=== PATIENT | male | born 1970 | race African-American/Black ===

== ENCOUNTER 2016-06-14 09:39 | Observation (INO) | payer OTHER ==
[2016-06-14 14:01] LABS: BASOPHILS % (AUTO) 0.3 % (0.2-1.0); HEMATOCRIT 27.5 % (42.0-54.0); HEMOGLOBIN 8.8 g/dL (13.5-18.0); LYMPHOCYTES # (AUTO) 3.3 X10^3/uL (1.3-2.9); LYMPHOCYTES % (AUTO) 23.9 % (21.0-51.0); MEAN CORPUSCULAR HEMOGLOBIN 25.4 pg (27.0-34.0); MEAN CORPUSCULAR HGB CONC 32.1 g/dL (33.0-35.0); MEAN CORPUSCULAR VOLUME 79.3 fL (80.0-100.0); MEAN PLATELET VOLUME 9.4 fL (7.4-11.0); MONOCYTES # (AUTO) 1.2 x10^3/uL (0.3-0.8); MONOCYTES % (AUTO) 8.7 % (0.0-13.0); NEUTROPHILS # (AUTO) 9.2 x10^3/uL (2.2-4.8); NEUTROPHILS % (AUTO) 67.1 % (42.0-75.0); PLATELET COUNT 94 X10^3/uL (150.0-450.0); RED BLOOD COUNT 3.47 X10^6/uL (4.7-6.0); RED CELL DISTRIBUTION WIDTH 15.6 % (11.6-16.5); WHITE BLOOD COUNT 13.7 X10^3/uL (3.6-10.0)
[2016-06-14 14:16] LABS: ALANINE AMINOTRANSFERASE 15 Units/L (12-78); ALBUMIN 3.2 g/dL (3.4-5.0); ALKALINE PHOSPHATASE 109 Units/L (46-116); ASPARTATE AMINO TRANSFERASE 10 Units/L (15-37); BLOOD UREA NITROGEN 11 mg/dL (7-18); CALCIUM 8.7 mg/dL (8.5-10.1); CARBON DIOXIDE 28.6 mmol/L (21-32); CHLORIDE 105 mmol/L (98-107); COR CA(FOR HYPOALB) 9.3 mg/dL (8.5-10.1); CREATININE 0.76 mg/dL (0.70-1.30); GLUCOSE 95 mg/dL (65-99); SODIUM 143 mmol/L (136-145); TOTAL PROTEIN 5.9 g/dL (6.4-8.2); eGFR BLACK RACES > 60 (>60); eGFR NON BLACK RACES > 60 (>60)
[2016-06-14] MEDS: NS 1000 ML 1,000 ML IV SCH (14:17)
[2016-06-14 14:24] LABS: C-REACTIVE PROTEIN 48.2 mg/L (0-3.0); FREE T4 (FREE THYROXINE) 1.09 ng/dL (0.76-1.46); TSH (3RD GENERATION) 0.982 uIU/mL (0.358-3.74)
[2016-06-14 14:25] LABS: HYPOCHROMASIA 1+; PLATELET MORPHOLOGY COMMENT NORMAL (NORMAL)
[2016-06-14 14:36] LABS: BILIRUBIN,URINE NEGATIVE (NEGATIVE); BLOOD/HEMOGLOBIN,URINE NEGATIVE (NEGATIVE); GLUCOSE, URINE NEGATIVE (NEGATIVE); KETONES,URINE NEGATIVE (NEGATIVE); LEUKOCYTE ESTERASE ,URINE 1+ (NEGATIVE); NITRITES,URINE NEGATIVE (NEGATIVE); PROTEIN,URINE NEGATIVE (NEGATIVE); UROBILINOGEN,URINE NORMAL (NORMAL)
[2016-06-14 15:11] LABS: APPEARANCE,URINE SLIGHTLY HAZY (CLEAR); COLOR,URINE YELLOW (YELLOW)
[2016-06-14 15:12] LABS: BACTERIA,URINE TRACE /HPF (NEGATIVE); MUCUS,URINE MODERATE /HPF (NEGATIVE); SQUAMOUS EPITHELIAL CELL,UR FEW /HPF (NEGATIVE)
[2016-06-14] MEDS ORDERED: NS 100 ML IV 100 ML IV ONE (15:45)
--- NOTE | 2016-06-14 16:27 | RAD ---
HISTORY: Cervical adenopathy, weight loss Study: Two view chest Comparison: None Findings: The lungs are clear without consolidation, effusion or pneumothorax. The cardiac and mediastinal co ntours are within normal limits. The soft tissues are unremarkable. IMPRESSION: 1. No acute cardiopulmonary abnormality. Reported By:
--- NOTE | 2016-06-14 16:34 | CT ---
HISTORY: Cervical adenopathy, anemia, weight loss Study: CT chest with a without contrast Comparison: None Technique: Multiple axial images of the chest were obtained from the thoracic inlet to the upper abd omen before and after the administration of IV contrast. Dose reduction techniques including Automa kelly Exposure Control (AEC) and adjustment of mA and kV were utilized. 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 No acute vascular abnormality is identified. Normal appearance of the heart and pericardium. The aorta appears normal in course a nd caliber. There is a subtle nodular infiltrates seen in the right upper lobe. Otherwise the lungs are clear. No effusion or pneumothorax.. Airways are patent. There is extensive lymphadenopathy seen . There are multiple enlarged axillary lymph nodes bilaterally, the largest on the right measuring 2 .9 x 2.2 x 3 cm. The largest precarinal lymph node measures 2.3 x 1.4 x 1.8 cm. The largest subcarin al lymph node measures 2.8 x 1.9 x 3.6 cm. The soft tissues and osseous structures appear intact. The spleen is mildly enlarged measuring up to the 13.4 cm. IMPRESSION: 1. There is bilateral axillary and mediastinal lymphadenopathy with measurements given above concern ing for underlying lymphoproliferative or neoplastic process. Granulomatous process such as sarcoido sis is not completely excluded though felt less likely given the distribution of enlarged nodes. 2. Mild splenomegaly is also noted. 3. There is a subtle nodular infiltrate in the right upper lobe of uncertain etiology, possibly rela kelly to the adenopathy versus a superimposed infectious/inflammatory process. Reported By:
[2016-06-14 17:58] VITALS: BMI 18.6
--- NOTE | 2016-06-14 18:50 | DR.H&P ---
H&P - History & Physical for Day of: H&P Date: 06/14/16 - Chief Complaint Chief Complaint: PAINLESS LYMPH NODE ENLARGEMENT, WEIGHT LOSS, LEUKOCYTOSIS, ANEMIA - Allergies Allergies/Adverse Reactions: Allergies Allergy/AdvReac Type Severity Reaction Status Date / Time No Known Drug Allergy Allergy Verified 06/14/16 12:28 - History of Present Illness History of Present Illness: DIRECT ADMIT FROM [facility] FOR EVALUATION OF PAINLESS ENLARGED NECK LYMPH NODES, ELEVATED WHITE BLOOD COUNT, ANEMIA AND CHRONIC WEIGHT. LOSS. PT DENIES ANY PMH AND DENIES SYMPTOMS OF SOB OR WEAKNESS. PT STATES HE HAS NOTICED LYMPH NODES FOR MONTHS, POSSIBLY YEAR PRIOR TO INCARCERATION. PLAN TO OBTAIN LABS, EKG, CT CHEST - Past Medical History Past Medical History: denies: Alzheimers, Anemia, Angina, Anxiety, Arthritis, Asthma, Cirrhosis, CHF, COPD, Coronary Artery Disease, CVA, Dementia, Depression , Diabetes, Dialysis, Migraines, Dyslipidemia, GERD, Gout, Headaches, Hypertension, Hyperthyroidism, Hypothyroidism, Kidney Stones, Liver Disease, [place] , PUD, Renal Disease, Schizophrenia, Seizures, Sleep Apnea, SVT, Ventricular Tachycardia - Past Surgical History Surgical History: Tonsillectomy - Family History Family Medical History: Cancer - Social History Does patient currently use any type of tobacco product: No Have you used tobacco products in the last 12 months: No Type of Tobacco Use: None Does any household member use tobacco: No Alcohol Use: None Drug Use: Prescription Drugs - Review of Systems Constitutional: No Symptoms Reported Eyes: No Symptoms Reported ENT: No Symptoms Reported Respiratory: No Symptoms Reported Cardiovascular: No Symptoms Reported Gastrointestinal: No Symptoms Reported Genitourinary: No Symptoms Reported Musculoskeletal: No Symptoms Reported Skin: No Symptoms Reported Neurological: No Symptoms Reported - Physical Exam Vital Signs: Temperature 98.4 F Pulse Rate [Left Brachial] 95 Respiratory Rate 20 Blood Pressure [Left Arm] 125/73 O2 Sat by Pulse Oximetry 96 Oriented: Normal Eyes: Normal Ear: Normal Nose: Normal Throat: Other (BILATERL ANTERIOR CERVICAL AND POSTERIOR LYMPH NODE 2CM ROUND, NON TENDER) Respiratory: Clear Throughout Cardiovascular: Normal : Normal Auscultation: Bowel Sounds: Normal Palpation: Normal Tenderness: Normal Skin: Normal Musculoskeletal: Normal Psychiatric: Normal Mood Description: Calm Speech Pattern: Clear - Assessment/Plan (1) Leukocytosis Qualifiers: Leukocytosis type: L Status: Acute Plan: EKG, CT CHEST, CBC, CMP. FLP (2) Acute lymphadenitis Status: Acute (3) Anemia Qualifiers: Anemia type: A Iron deficiency anemia type: I Vitamin B12 deficiency anemia type: V Folate deficiency anemia type: F Bone marrow failure anemia type: B Hemolytic anemia type: H Other causes of anemia: O Status: Acute
[2016-06-15] MEDS ORDERED: TYLENOL 325 MG TAB PO PRN (01:32)
[2016-06-15 05:54] LABS: BASOPHILS % (AUTO) 0 % (0.2-1.0); HEMATOCRIT 24.3 % (42.0-54.0); HEMOGLOBIN 7.8 g/dL (13.5-18.0); LYMPHOCYTES # (AUTO) 3.5 X10^3/uL (1.3-2.9); LYMPHOCYTES % (AUTO) 22.8 % (21.0-51.0); MEAN CORPUSCULAR HEMOGLOBIN 25.7 pg (27.0-34.0); MEAN CORPUSCULAR HGB CONC 32.2 g/dL (33.0-35.0); MEAN CORPUSCULAR VOLUME 79.7 fL (80.0-100.0); MEAN PLATELET VOLUME 9.5 fL (7.4-11.0); MONOCYTES # (AUTO) 1.7 x10^3/uL (0.3-0.8); MONOCYTES % (AUTO) 10.8 % (0.0-13.0); NEUTROPHILS # (AUTO) 10.3 x10^3/uL (2.2-4.8); NEUTROPHILS % (AUTO) 66.4 % (42.0-75.0); PLATELET COUNT 90 X10^3/uL (150.0-450.0); RED BLOOD COUNT 3.04 X10^6/uL (4.7-6.0); RED CELL DISTRIBUTION WIDTH 15.8 % (11.6-16.5); WHITE BLOOD COUNT 15.5 X10^3/uL (3.6-10.0)
[2016-06-15 05:55] LABS: ALANINE AMINOTRANSFERASE 13 Units/L (12-78); ALBUMIN 2.7 g/dL (3.4-5.0); ALKALINE PHOSPHATASE 101 Units/L (46-116); ASPARTATE AMINO TRANSFERASE 10 Units/L (15-37); BLOOD UREA NITROGEN 10 mg/dL (7-18); CALCIUM 8.2 mg/dL (8.5-10.1); CARBON DIOXIDE 26.5 mmol/L (21-32); CHLORIDE 108 mmol/L (98-107); COR CA(FOR HYPOALB) 9.2 mg/dL (8.5-10.1); CREATININE 0.83 mg/dL (0.70-1.30); GLUCOSE 93 mg/dL (65-99); SODIUM 143 mmol/L (136-145); TOTAL PROTEIN 5.1 g/dL (6.4-8.2); eGFR BLACK RACES > 60 (>60); eGFR NON BLACK RACES > 60 (>60)
[2016-06-15] MEDS: NS 1000 ML 1,000 ML IV SCH ×2 (05:56→15:31)
[2016-06-15 06:09] LABS: HYPOCHROMASIA 1+; PLATELET MORPHOLOGY COMMENT NORMAL (NORMAL)
[2016-06-15] MEDS ORDERED: HYDROCHLOROTHIAZIDE 25 MG TAB PO SCH (11:00)
[2016-06-15] MEDS ORDERED: NORVASC TAB 10 MG PO SCH (11:00)
--- NOTE | 2016-06-15 13:54 | PCM.PROG ---
Progress Note - Subjective Subjective: with diagnosis of lymphadenitis, anemia, and leukocytosis.Patient's CT of his chest revealed bilateral axillary and mediastinal lymphadenopathy. Suspicious for neoplastic process. Dr. Enamorado discussing with [facility] for possible transfer to specialty care for further evaluation. Patient remains asymptomatic denying pain or shortness of breath. - Past Medical Family Social History Past Med/Fam/Surg Hx: No changes since H&P Allergies: Allergies No Known Drug Allergy Allergy (Verified 06/14/16 12:28) - Review of Systems ROS: No change since H&P - Vital Signs and I&O's Vital Signs: Temperature 97.7 F Pulse Rate [Left Brachial] 90 Respiratory Rate 20 Blood Pressure [Left Arm] 140/87 O2 Sat by Pulse Oximetry 95 Intake and Output: Intake & Output 06/13/16 06/14/16 06/15/16 06/16/16 11:59 11:59 11:59 11:59 Intake Total 1120 Output Total 750 Balance 370 - Physical Exam Oriented: Normal Eyes: Normal Ear: Normal Nose: Normal Throat: Other (BILATERL ANTERIOR CERVICAL AND POSTERIOR LYMPH NODE 2CM ROUND, NON TENDER) Respiratory: Diminished Cardiovascular: Normal : Normal Auscultation: Bowel Sounds: Normal Tenderness: Normal Skin: Normal Musculoskeletal: Normal Psychiatric: Normal Mood Description: Calm Speech Pattern: Clear, Appropriate - Laboratory and Diagnostics Result Diagrams: 06/15/16 04:30 06/15/16 04:30 Labs: 06/14/16 14:29 Urine,Clean Catch Urine Culture - Preliminary Laboratory WBC 15.5 X10^3/uL (3.6-10.0) H 06/15/16 04:30 RBC 3.04 X10^6/uL (4.7-6.0) L 06/15/16 04:30 Hgb 7.8 g/dL (13.5-18.0) L 06/15/16 04:30 Hct 24.3 % (42.0-54.0) L 06/15/16 04:30 MCV 79.7 fL (80.0-100.0) L 06/15/16 04:30 MCH 25.7 pg (27.0-34.0) L 06/15/16 04:30 MCHC 32.2 g/dL (33.0-35.0) L 06/15/16 04:30 RDW 15.8 % (11.6-16.5) 06/15/16 04:30 Plt Count 90 X10^3/uL (150.0-450.0) L 06/15/16 04:30 Plt Count Comment Decreased (ADEQUATE) 06/15/16 04:30 MPV 9.5 fL (7.4-11.0) 06/15/16 04:30 Neut % 66.4 % (42.0-75.0) 06/15/16 04:30 Lymph % 22.8 % (21.0-51.0) 06/15/16 04:30 [place]erry % 10.8 % (0.0-13.0) 06/15/16 04:30 Eos % 0.0 % (0.9-2.9) L 06/15/16 04:30 Baso % 0 % (0.2-1.0) L 06/15/16 04:30 Neut # 10.3 x10^3/uL (2.2-4.8) H 06/15/16 04:30 Lymph # 3.5 X10^3/uL (1.3-2.9) H 06/15/16 04:30 [place]erry # 1.7 x10^3/uL (0.3-0.8) H 06/15/16 04:30 Eos # 0.0 x10^3/uL (0.0-0.2) 06/15/16 04:30 Baso # 0.0 X10^3/uL (0.0-0.1) 06/15/16 04:30 Absolute Nucleated RBC 0.0 /100WBC 06/15/16 04:30 Plt Morphology Comment Normal (NORMAL) 06/15/16 04:30 RBC Morphology Abnormal (NORMAL) 06/15/16 04:30 Hypochromasia 1+ A 06/15/16 04:30 ESR 25 MM/HOUR (0-15) H 06/14/16 13:30 Sodium 143 mmol/L (136-145) 06/15/16 04:30 Corrected Sodium TNP 06/15/16 04:30 Potassium 3.9 mmol/L (3.5-5.1) 06/15/16 04:30 Chloride 108 mmol/L (98-107) H 06/15/16 04:30 Carbon Dioxide 26.5 mmol/L (21-32) 06/15/16 04:30 BUN 10 mg/dL (7-18) 06/15/16 04:30 Creatinine 0.83 mg/dL (0.70-1.30) 06/15/16 04:30 Est GFR (MDRD) Af Amer > 60 (>60) 06/15/16 04:30 Est GFR (MDRD) Non-Af > 60 (>60) 06/15/16 04:30 Glucose 93 mg/dL (65-99) 06/15/16 04:30 Calcium 8.2 mg/dL (8.5-10.1) L 06/15/16 04:30 Corrected Calcium 9.2 mg/dL (8.5-10.1) 06/15/16 04:30 TIBC 255 ug/dL (250-450) 06/14/16 13:30 Ferritin 265 ng/mL (26-388) 06/14/16 13:30 Total Bilirubin 0.30 mg/dL (0.2-1.0) 06/15/16 04:30 AST 10 Units/L (15-37) L 06/15/16 04:30 ALT 13 Units/L (12-78) 06/15/16 04:30 Alkaline Phosphatase 101 Units/L (46-116) 06/15/16 04:30 Lactate Dehydrogenase 198 Units/L (85-227) 06/14/16 13:30 C-Reactive Protein 48.20 mg/L (0-3.0) H 06/14/16 13:30 Total Protein 5.1 g/dL (6.4-8.2) L 06/15/16 04:30 Albumin 2.7 g/dL (3.4-5.0) L 06/15/16 04:30 Globulin 2.4 g/dL (2.5-4.5) L 06/15/16 04:30 Albumin/Globulin Ratio 1.1 Ratio (1.1-2.1) 06/15/16 04:30 Vitamin B12 1837 pg/mL (193-986) H 06/14/16 13:30 Folate 15.3 ng/mL (>8.6) 06/14/16 13:30 Free T4 1.09 ng/dL (0.76-1.46) 06/14/16 13:30 TSH 3rd Generation 0.982 uIU/mL (0.358-3.74) 06/14/16 13:30 Specimen Type Clean catch urine 06/14/16 14:29 Urine Color Yellow (YELLOW) 06/14/16 14:29 Urine Appearance Slightly hazy (CLEAR) 06/14/16 14:29 Urine pH 6.0 (5.0 - 8.0) 06/14/16 14:29 Ur Specific [place] 1.025 (1.000-1.030) 06/14/16 14:29 Urine Protein Negative (NEGATIVE) 06/14/16 14:29 Urine Glucose (UA) Negative (NEGATIVE) 06/14/16 14: Urine Ketones Negative (NEGATIVE) 06/14/16 14: Urine Occult Blood Negative (NEGATIVE) 06/14/16 14: Urine Nitrite Negative (NEGATIVE) 06/14/16 14: Urine Bilirubin Negative (NEGATIVE) 06/14/16 14:29 Urine Urobilinogen Normal (NORMAL) 06/14/16 14:29 Ur Leukocyte Esterase 1+ (NEGATIVE) 06/14/16 14:29 Urine RBC 1 - 3 /HPF (NEGATIVE) 06/14/16 14:29 Urine WBC 5 - 8 /HPF (NEGATIVE) 06/14/16 14:29 Ur Squamous Epith Cells Few /HPF (NEGATIVE) 06/14/16 14:29 Urine Bacteria Trace /HPF (NEGATIVE) 06/14/16 14:29 Urine Mucus Moderate /HPF (NEGATIVE) 06/14/16 14:29 Ur Culture Indicated? Yes/culture set up 06/14/16 14:29 - Plan (1) Leukocytosis Status: Acute Qualifiers: Leukocytosis type: L Plan: EKG, CT CHEST, CBC, CMP. FLP (2) Acute lymphadenitis Status: Acute Plan: CT CHEST SUSPICIOUS FOR NEOPLASTIC PROCRESS, DR ENAMORADO DISCUSSING TRANSFER TO SPECILATY CARE AT [facility], PT MICRO LABS STILL PENDING (3) Anemia Status: Acute Qualifiers: Anemia type: A Iron deficiency anemia type: I Vitamin B12 deficiency anemia type: V Folate deficiency anemia type: F Bone marrow failure anemia type: B Hemolytic anemia type: H Other causes of anemia: O
[2016-06-15] MEDS ORDERED: TAB-A-VITE PO SCH (16:00)
[2016-06-15 17:05] LABS: HEMATOCRIT 25.3 % (42.0-54.0); HEMOGLOBIN 8.2 g/dL (13.5-18.0)
[2016-06-15 17:15] VITALS: BP 111/68
--- NOTE | 2016-06-15 17:32 | RAD ---
HISTORY: Cough Study: PA and lateral chest Comparison: Yesterday Findings: The trachea is midline. The cardiac silhouette is unremarkable. The lungs are clear without focal infiltrate or effusion. The bony thorax is unremarkable. IMPRESSION: 1. No acute cardiopulmonary disease. Reported By:
== END 2016-06-15 19:00 | disposition home or self-care (01) ==
LOC: OBS 09:39 → MED/SURG 10:00
PROVIDERS: ADMIT Internal Medicine; ATTEND Internal Medicine
DX: L04.0 Acute lymphadenitis of face, head and neck (principal); D64.89 Other specified anemias; D72.828 Other elevated white blood cell count; R63.4 Abnormal weight loss; R94.31 Abnormal electrocardiogram [ECG] [EKG]
CPT/HCPCS: 36415; 71020; 71270; 80053; 81001; 82607; 82728; 82746; 83550; 83615; 84439; 84443; 85014; 85018; 85025; 85652; 86140; 87040; 87086; 93005; 93010; A4222; G0378